=== PATIENT | female | born 2000 | race Caucasian/White ===

== ENCOUNTER 2022-10-08 11:48 | Emergency (ER) | payer BC, SELFPAY ==
--- NOTE | 2022-10-08 11:54 | ED.URI ---
HPI - URI/Sore Throat General Chief Complaint: Upper Respiratory Infection Stated Complaint: CONGESITON/SORE THROAT/SWOLLEN TONSILS/WHITE SPOTS Time Seen by Provider: 10/08/22 11:54 Source: patient and RN notes reviewed History of Present Illness HPI Narrative: Patient is a 22-year-old female who presents to the Urgent Care with complaints of congestion, sore throat, swelling tonsils since last Friday. Patient denies any known fevers but states that she has had some nausea. Patient has been taking Tylenol and ibuprofen. Denies any ill exposures. No other acute complaints. No acute distress noted. Patient aware of the plan of care. Some parts of this dictation were generated by voice recognition software and may contain typographical and/or grammatical inaccuracies. Related Data Allergies Allergy/AdvReac Type Severity Reaction Status Date / Time acetaminophen [From Vicodin] Allergy Itching Verified 10/08/22 11:57 hydrocodone [From Vicodin] Allergy Itching Verified 10/08/22 11:57 Review of Systems Review of Systems: CONSTITUTIONAL: Denies fever, chills, or sweats. EYES: Denies visual changes, redness, or discharge. ENT: Reports of sore throat, rhinorrhea, congestion CARDIOVASCULAR: Denies chest pain, palpitations, or edema. RESPIRATORY: Denies cough or dyspnea. GASTROINTESTINAL: Denies abdominal pain, nausea, vomiting, or diarrhea. GENITOURINARY: Denies dysuria or hematuria. SKIN: Denies rash or itching. MUSCULOSKELETAL: Denies back pain, joint pain, or myalgia. NEUROLOGIC: Denies headache, numbness, or weakness. All other systems reviewed are negative, except as documented in HPI. PMFSH Comments At the time of my signature, I reviewed and agree with the nursing past medical, surgical, social, and family history. There is no relevant family history pertinent to the patient complaint. Exam Narrative: GENERAL: This is a well-nourished, well-developed patient, in no apparent distress. HEAD: normocephalic, atraumatic. EYES: PERRL. Sclera clear/white. Vision is grossly intact. EARS: External ears normal, auditory canals clear and without drainage, moderately injected a fused erythema neck right TM. Left TM normal without perforation. Hearing grossly intact. NOSE: External nose normal with no obvious nasal discharge. Bilateral erythroid nares with clear yellow rhinorrhea THROAT: Mucous membranes moist, mild erythema to posterior oropharynx with moderate postnasal drainage in bilateral exudate NECK: Neck supple, non-tender without lymphadenopathy, masses or thyromegaly. CARDIOVASCULAR: Regular rate and rhythm without murmurs, gallops, or rubs. RESPIRATORY: Clear to auscultation. Breath sounds equal bilaterally. No wheezes, rales, or rhonchi. SKIN: warm, intact with no suspicious lesions or rash, good texture and turgor. NEURO: awake, alert, and oriented to person, place and time. There were no obvious focal neurologic abnormalities. EXTREMITIES: No clubbing, cyanosis, or edema. Course Course Level of Care: Express Care Visit Vital Signs Vital signs: Vital Signs Temperature 98.4 F 10/08/22 11:59 Pulse Rate 89 10/08/22 11:59 Respiratory Rate 16 10/08/22 11:59 Blood Pressure 130/91 H 10/08/22 11:59 Pulse Oximetry 100 10/08/22 11:59 Oxygen Delivery Room Air 10/08/22 11:59 Temperature 98.4 F 10/08/22 11:59 Pulse Rate 89 10/08/22 11:59 Respiratory Rate 16 10/08/22 11:59 Blood Pressure 130/91 H 10/08/22 11:59 Pulse Oximetry 100 10/08/22 11:59 Oxygen Delivery Room Air 10/08/22 11:59 Reviewed- Patient is informed that they may have pre-hypertension or hypertension based on a blood pressure reading in the department. I recommend the patient call the primary care provider listed on their discharge instructions or a physician of their choice this week to arrange follow-up for further evaluation of possible pre-hypertension or hypertension. MDM - URI/Sore Throat [facility]
[2022-10-08 11:59] VITALS: BP 130/91; PULSE 89; RESP 16; TEMP 36.9; O2SAT 100
== END 2022-10-08 12:29 | disposition home or self-care (01) ==
PROVIDERS: Emergency Provider Nurse Practitioner Family
DX: J06.9 Acute upper respiratory infection, unspecified (principal); H66.91 Otitis media, unspecified, right ear
CPT/HCPCS: 87081; 87880; 99213; G0463